=== PATIENT | female | born 1950 | race Caucasian/White ===

== ENCOUNTER 2021-10-20 14:52 | Emergency (ER) | payer MEDICARE, MEDICAID ==
[~2021-10-20] VITALS: Ht 170.1 cm; Wt 136.1 kg
[2021-10-20] MEDS ORDERED: CYCLOBENZAPRINE5 M3 PO (15:00)
[2021-10-20] MEDS ORDERED: ACETAMINOPHEN500 M4 PO (15:00)
[2021-10-20] MEDS ORDERED: ALLERGY RELIEF25 MG PO (15:01)
[2021-10-20] MEDS ORDERED: DEPAKOTE250 MG PO (15:02)
[2021-10-20] MEDS ORDERED: DEPAKOTE DR500 MG PO (15:02)
[2021-10-20] MEDS ORDERED: NEURONTIN100 MG PO (15:03)
[2021-10-20] MEDS ORDERED: INSULIN AS100 UNIT/3 SQ (15:05)
[2021-10-20] MEDS ORDERED: ZESTRIL2.5 MG PO (15:06)
[2021-10-20] MEDS ORDERED: TOUJEO MAX300 UNIT/1 SQ (15:06)
[2021-10-20] MEDS ORDERED: MELATONIN3 MG PO (15:06)
[2021-10-20] MEDS ORDERED: GLUMETZA500 MG PO (15:07)
[2021-10-20 15:59] LABS: BASO % 0.3 % (0.0-1.0); EOS # 0.2 10*3/uL (0.0-0.4); EOS % 3.4 % (1.0-4.0); HEMATOCRIT 44.3 % (37.0-47.0); LYMPH # 1.6 10*3/uL (1.3-4.4); LYMPH % 22.2 % (27.0-41.0); MEAN CELL VOLUME 88.1 fl (81.0-99.0); MEAN CORPUSCULAR HGB 27.8 pg (27.0-31.0); MEAN CORPUSCULAR HGB CONC 31.6 g/dl (33.0-37.0); MEAN PLATELET VOLUME 9.4 fl (9.6-12.3); MONO # 0.4 10*3/uL (0.1-1.0); MONO % 6.2 % (3.0-9.0); NEUT # 4.7 10*3/uL (2.3-7.9); NEUT % 67.6 % (47.0-73.0); PLATELET COUNT AUTOMATED 268 10*3/uL (130-400); RED BLOOD COUNT 5.03 10*6/uL (4.10-5.10); RED CELL DISTRI WIDTH 13.7 % (0-14.5)
[2021-10-20 16:17] LABS: ALKALINE PHOSPHATASE 48 U/L (45-117); BUN 12 mg/dl (7-24); CHLORIDE 106 mmol/L (98-107); CREATININE 0.92 mg/dL (0.55-1.02); POTASSIUM 4.1 mmol/L (3.5-5.1); SGOT/AST 13 IU/L (3-35); SGPT/ALT 16 U/L (12-78); SODIUM 139 mmol/L (136-145); TOTAL PROTEIN 7.1 gm/dL (6.4-8.2)
[2021-10-20 16:24] LABS: ETHYL ALCOHOL < 3.0 mg/dl (<3)
[2021-10-20 18:13] LABS: BILIRUBIN 1+ (Negative); BLOOD 1+ (Negative); CLARITY Turbid (Clear); COLOR Dark Yellow (Yellow); GLUCOSE 1+ (Negative); KETONE 1+ (Negative); LEUKO ESTERASE 1+ (Negative); NITRITE Positive (Negative); SPECIFIC GRAVITY >= 1.030 (1.001-1.030)
[2021-10-20 18:23] LABS: URINE AMPHETAMINES < 1000 (1000ng/ml); URINE BARBITURATES < 200 (200ng/ml); URINE BENZODIAZEPINES < 200 (200ng/ml); URINE CANNABINOIDS (THC) < 50 (50ng/ml); URINE COCAINE < 300 (300ng/ml); URINE METHADONE < 300 (300ng/ml); URINE OPIATES < 300 (300ng/ml)
[2021-10-20 18:29] LABS: URINE PHENCYCLIDINE < 25 (25ng/ml)
[2021-10-20 18:44] LABS: BACTERIA 4+
[2021-10-20] MEDS ORDERED: NASAL RELIEF 1215 ML NAS (21:16)
[2021-10-20] MEDS ORDERED: TRAMADOL HCL50 MG PO (21:18)
[2021-10-20] MEDS ORDERED: GERI-TUSSI100 MG/5 M PO (21:28)
[2021-10-20] MEDS ORDERED: PEPTO-BISM262 MG/11 PO (21:29)
[2021-10-20] MEDS ORDERED: BENZONATATE100 M1 PO (21:32)
[2021-10-20] MEDS ORDERED: VISTARIL50 MG PO (21:33)
[2021-10-20] MEDS ORDERED: INSULIN AS100 UNIT/2 SQ (21:40)
[2021-10-20] MEDS ORDERED: ZOFRAN4 MG PO (21:42)
== END 2021-10-20 20:30 ==
LOC: ED 14:52
PROVIDERS: Physician Assistant
DX: F63.81 Intermittent explosive disorder (principal); Z20.822 Contact with and (suspected) exposure to COVID-19

== ENCOUNTER 2021-10-20 19:34 | Inpatient (IN) | payer MEDICARE, MEDICAID ==
[~2021-10-20] VITALS: Ht 170.1 cm; Wt 137.9 kg
[~2021-10-20 19:34] MED LIST: ACETAMINOPHEN500 M4 PO; ALLERGY RELIEF25 MG PO; CYCLOBENZAPRINE5 M3 PO; DEPAKOTE DR500 MG PO; DEPAKOTE250 MG PO; GLUMETZA500 MG PO; INSULIN AS100 UNIT/3 SQ; MELATONIN3 MG PO; NEURONTIN100 MG PO; TOUJEO MAX300 UNIT/1 SQ; ZESTRIL2.5 MG PO
[2021-10-20 20:39] VITALS: BP 140/52
[2021-10-20] MEDS ORDERED: NASAL RELIEF 1215 ML NAS (21:16)
[2021-10-20] MEDS ORDERED: TRAMADOL HCL50 MG PO (21:18)
[2021-10-20] MEDS ORDERED: GERI-TUSSI100 MG/5 M PO (21:28)
[2021-10-20] MEDS ORDERED: PEPTO-BISM262 MG/11 PO (21:29)
[2021-10-20] MEDS ORDERED: BENZONATATE100 M1 PO (21:32)
[2021-10-20] MEDS ORDERED: VISTARIL50 MG PO (21:33)
[2021-10-20] MEDS ORDERED: INSULIN AS100 UNIT/2 SQ (21:40)
[2021-10-20] MEDS ORDERED: ZOFRAN4 MG PO (21:42)
[2021-10-21 06:39] LABS: BASO % 0.6 % (0.0-1.0); EOS # 0.3 10*3/uL (0.0-0.4); EOS % 3.8 % (1.0-4.0); HEMATOCRIT 39.4 % (37.0-47.0); LYMPH # 1.4 10*3/uL (1.3-4.4); LYMPH % 20.3 % (27.0-41.0); MEAN CELL VOLUME 87.6 fl (81.0-99.0); MEAN CORPUSCULAR HGB 28.4 pg (27.0-31.0); MEAN CORPUSCULAR HGB CONC 32.5 g/dl (33.0-37.0); MEAN PLATELET VOLUME 9.5 fl (9.6-12.3); MONO # 0.5 10*3/uL (0.1-1.0); MONO % 7.2 % (3.0-9.0); NEUT # 4.8 10*3/uL (2.3-7.9); NEUT % 67.7 % (47.0-73.0); PLATELET COUNT AUTOMATED 241 10*3/uL (130-400); RED CELL DISTRI WIDTH 13.7 % (0-14.5); WHITE BLOOD COUNT 7.1 10*3/uL (4.8-10.8)
[2021-10-21 06:58] LABS: ALKALINE PHOSPHATASE 43 U/L (45-117); BUN 10 mg/dl (7-24); CHLORIDE 106 mmol/L (98-107); CHOLESTEROL 143 mg/dL (<200); CREATININE 0.81 mg/dL (0.55-1.02); LDL CHOLESTEROL 76 mg/dL (9-159); POTASSIUM 3.8 mmol/L (3.5-5.1); SGOT/AST 9 IU/L (3-35); SGPT/ALT 12 U/L (12-78); SODIUM 139 mmol/L (136-145); TOTAL PROTEIN 6.7 gm/dL (6.4-8.2); TRIGLYCERIDES 149 mg/dl (<150); VALPROIC ACID (DEPAKENE) 39.7 ug/ml (50-100)
[2021-10-21 07:03] LABS: THYROID STIM HORMONE (HS) 0.487 uIU/ml (0.358-4.75)
[2021-10-21 07:56] VITALS: BP 140/72
[2021-10-21 09:03] LABS: VITAMIN D, 25-HYDROXY 18.7 ng/mL (30-100)
[2021-10-21 20:00] VITALS: BP 127/68
[2021-10-22 08:11] VITALS: BP 131/58
[2021-10-22 20:00] VITALS: BP 121/51
[2021-10-23 07:53] VITALS: BP 138/60
[2021-10-23 20:00] VITALS: BP 115/74
[2021-10-24 07:46] VITALS: BP 134/52
[2021-10-24 19:26] VITALS: BP 156/63
[2021-10-25 07:44] VITALS: BP 152/60
[2021-10-25 20:00] VITALS: BP 157/74
[2021-10-26 07:29] VITALS: BP 108/87
[2021-10-26 07:30] VITALS: BP 152/87
[2021-10-26 20:00] VITALS: BP 119/56
[2021-10-27 07:43] VITALS: BP 135/56
[2021-10-27 10:33] LABS: BASO # 0.1 10*3/uL (0.0-0.1); BASO % 1.3 % (0.0-1.0); EOS # 0.3 10*3/uL (0.0-0.4); EOS % 5.2 % (1.0-4.0); HEMATOCRIT 42.8 % (37.0-47.0); LYMPH # 1.2 10*3/uL (1.3-4.4); LYMPH % 21.5 % (27.0-41.0); MEAN CELL VOLUME 90.5 fl (81.0-99.0); MEAN CORPUSCULAR HGB 27.9 pg (27.0-31.0); MEAN CORPUSCULAR HGB CONC 30.8 g/dl (33.0-37.0); MEAN PLATELET VOLUME 9.5 fl (9.6-12.3); MONO # 0.4 10*3/uL (0.1-1.0); MONO % 7.7 % (3.0-9.0); NEUT # 3.5 10*3/uL (2.3-7.9); NEUT % 62.2 % (47.0-73.0); PLATELET COUNT AUTOMATED 248 10*3/uL (130-400); RED BLOOD COUNT 4.73 10*6/uL (4.10-5.10); RED CELL DISTRI WIDTH 13.6 % (0-14.5); WHITE BLOOD COUNT 5.6 10*3/uL (4.8-10.8)
[2021-10-27 10:48] LABS: ALKALINE PHOSPHATASE 36 U/L (45-117); BUN 11 mg/dl (7-24); CHLORIDE 110 mmol/L (98-107); CREATININE 0.77 mg/dL (0.55-1.02); POTASSIUM 3.6 mmol/L (3.5-5.1); SGOT/AST 18 IU/L (3-35); SGPT/ALT 18 U/L (12-78); SODIUM 143 mmol/L (136-145); TOTAL PROTEIN 6.5 gm/dL (6.4-8.2)
[2021-10-27 20:00] VITALS: BP 144/68
[2021-10-28 08:13] VITALS: BP 134/61
[2021-10-28 20:00] VITALS: BP 115/54
[2021-10-29 08:13] VITALS: BP 137/92
[2021-10-29 20:00] VITALS: BP 128/62; BP 135/47
[2021-10-30 07:15] VITALS: BP 152/54
[2021-10-30 19:06] VITALS: BP 146/54
[2021-10-31 08:00] VITALS: BP 155/64
[2021-10-31 19:23] VITALS: BP 144/76
[2021-11-01 08:00] VITALS: BP 131/59
[2021-11-01 19:07] VITALS: BP 137/51
[2021-11-02 07:34] VITALS: BP 108/56
[2021-11-03 07:37] VITALS: BP 127/50
[2021-11-03 20:00] VITALS: BP 104/62
[2021-11-04 07:49] VITALS: BP 126/64
[2021-11-04 20:00] VITALS: BP 132/72
[2021-11-05 08:00] VITALS: BP 121/87
[2021-11-05 20:00] VITALS: BP 110/54
[2021-11-06 07:09] VITALS: BP 131/69
[2021-11-06 19:05] VITALS: BP 139/70
[2021-11-07 07:29] VITALS: BP 111/53
[2021-11-07 20:00] VITALS: BP 136/59
[2021-11-08 07:22] VITALS: BP 99/50
[2021-11-08 20:00] VITALS: BP 122/50
[2021-11-09 07:14] VITALS: BP 109/42
[2021-11-10 08:00] VITALS: BP 110/66
[2021-11-10] MEDS ORDERED: RISPERIDONE0.5 MG PO (09:41)
[2021-11-10] MEDS ORDERED: RISPERIDONE1 MG PO (09:41)
[2021-11-10] MEDS ORDERED: VITAMIN D3125 MC1 PO (09:41)
[2021-11-10] MEDS ORDERED: DULOXETINE HCL30 MG PO (09:41)
== END 2021-11-10 12:30 | DRG 885 ==
LOC: 3N 19:34 → EDHOLD 19:34 → 3N 19:42
PROVIDERS: Counselor Professional; ADMIT Psychiatry & Neurology Psychiatry; ATTEND Psychiatry & Neurology Psychiatry
DX: F31.9 Bipolar disorder, unspecified (principal); E43 Unspecified severe protein-calorie malnutrition; F63.81 Intermittent explosive disorder; E11.65 Type 2 diabetes mellitus with hyperglycemia; N30.01 Acute cystitis with hematuria; Z68.42 Body mass index [BMI] 45.0-49.9, adult; K58.9 Irritable bowel syndrome, unspecified; Z66 Do not resuscitate; E66.01 Morbid (severe) obesity due to excess calories; E11.42 Type 2 diabetes mellitus with diabetic polyneuropathy; Z20.822 Contact with and (suspected) exposure to COVID-19; J30.89 Other allergic rhinitis; F41.9 Anxiety disorder, unspecified; I10 Essential (primary) hypertension; E78.2 Mixed hyperlipidemia; Z86.73 Personal history of transient ischemic attack (TIA), and cerebral infarction without residual deficits; Z90.710 Acquired absence of both cervix and uterus; Z79.899 Other long term (current) drug therapy; Z79.4 Long term (current) use of insulin